=== PATIENT | female | born 1970 | race American Indian/Alaskan Native ===

== ENCOUNTER 2021-06-25 12:20 | Emergency (ER) | payer OTHER ==
[2021-06-25] MEDS ORDERED: ONDANSETRON 4 MG/2 ML INJ IV NR (12:30)
[2021-06-25] MEDS ORDERED: HYDROmorphone 1 MG/1 ML INJ IV ONE (12:30)
[2021-06-25] MEDS ORDERED: fentaNYL 100 MCG/2 ML INJ IV ONE ×3 (12:36→13:29)
--- NOTE | 2021-06-25 13:33 | XRay Report ---
LEFT HUMERUS 1 VIEW(S) INDICATION / CLINICAL INFORMATION: fall, deformity . Left arm pain. COMPARISON: None available. FINDINGS: BONES / JOINT(S): Posterior left elbow dislocation. No fracture of the left humerus. SOFT TISSUES: Mild soft tissue swelling around the left elbow. ADDITIONAL FINDINGS: None. Signer Name: Carrie Stevenson MD Signed: 06/25/2021 1:28 PM Workstation Name: [id number]
--- NOTE | 2021-06-25 13:35 | XRay Report ---
LEFT ELBOW 1 VIEW(S) LEFT FOREARM 1 VIEW INDICATION / CLINICAL INFORMATION: fall, deformity with left elbow and forearm pain. COMPARISON: None available. FINDINGS: Only single views of the left elbow and left forearm could be obtained due to patient pain. BONES / JOINT(S): Posterior dislocation of the left elbow with posterior displacement of the proximal radius and ulna with respect to the distal humerus. No definite fracture of the visualized distal hu merus or radius/ulna. SOFT TISSUES: No significant abnormality. ADDITIONAL FINDINGS: None. IMPRESSION: 1. Posterior elbow dislocation. Follow-up radiographic series after reduction is recommended. Signer Name: Carrie Stevenson MD Signed: 06/25/2021 1:30 PM Workstation Name: [id number]
[2021-06-25] MEDS ORDERED: KETAMINE 500 MG/5 ML VIAL MDV IV ONE (13:37)
[2021-06-25] MEDS ORDERED: propofoL 200 MG/20 ML VIAL IV ONE (13:37)
[2021-06-25] MEDS ORDERED: SODIUM CHLORIDE 0.9% 1000 ML 1,000 ML ONE (14:02)
--- NOTE | 2021-06-25 14:45 | XRay Report ---
LEFT ELBOW 1 VIEW(S) INDICATION / CLINICAL INFORMATION: post reduction COMPARISON: Radiographs from earlier in the day FINDINGS: BONES / JOINT(S): There is a small chip fracture along the anterior aspect of the radial head. There is interval reduction of the radial head with appropriate alignment in relation to the capitellum. No significant arthritis. There is a moderate joint effusion. SOFT TISSUES: No significant abnormality. ADDITIONAL FINDINGS: None. Signer Name: Christian Hdz DO Signed: 06/25/2021 2:41 PM Workstation Name: [id number]
[2021-06-25] MEDS ORDERED: NALOXONE 0.4 MG/1 ML INJ ONE (15:17)
--- NOTE | 2021-06-25 15:25 | Emergency Department Report ---
ED Upper Extremity Inj HPI - General Chief Complaint: Extremity Injury, Upper Stated Complaint: ARM FRACTURE Time Seen by Provider: 06/25/21 12:30 Source: patient Mode of arrival: Ambulatory Limitations: No Limitations - History of Present Illness Initial Comments: 50-year-old right-hand dominant female no significant past medical problems states she fell off of her exercise bike injuring her left elbow. Patient presents with obvious left elbow deformity and crying in pain. Pain is 10/10 in intensity. Patient is unable to move arm secondary to pain. No other injury reported. patient did not have anything to eat or drink today. History of tubal ligation without issues with anesthesia in the past - Related Data Previous Rx's Medication Instructions Recorded Last Taken Type HYDROcodone/APAP 5-325 [Mcbain 1 each PO Q6HR PRN #14 tablet 06/25/21 Unknown Rx 5/325] Ibuprofen [Motrin] 800 mg PO Q8HR PRN #20 tablet 06/25/21 Unknown Rx Allergies Allergy/AdvReac Type Severity Reaction Status Date / Time Penicillins Allergy Unknown Verified 06/25/21 12:36 ED Review of Systems ROS: Stated complaint: ARM FRACTURE Other details as noted in HPI Comment: All other systems reviewed and negative ED Past Medical Hx - Medications Home Medications: Home Medications Medication Instructions Recorded Confirmed Last Taken Type HYDROcodone/APAP 5-325 [Mcbain 1 each PO Q6HR PRN #14 tablet 06/25/21 Unknown Rx 5/325] Ibuprofen [Motrin] 800 mg PO Q8HR PRN #20 tablet 06/25/21 Unknown Rx ED Physical Exam - General Limitations: No Limitations - Other Other exam information: General: Crying, distress secondary Head: Atraumatic Eyes: normal appearance ENT: Moist mucous membranes Neck: Normal appearance, no midline tenderness Chest: Clear to auscultation bilaterally CV: Regular rate and rhythm Abdomen: Soft, normal bowel sounds, nontender, nondistended, no rebound or guarding Back: Normal inspection Extremity: Left elbow deformity with pain to distal humerus and proximal forearm, 2+ radial pulse Neuro: Alert O x 3, no facial asymmetry, speech clear, no gross motor sensory deficit Skin: No rash ED Course Vital Signs 06/25/21 06/25/21 06/25/21 12:34 12:59 13:41 Temperature 98.4 F Temperature [ Pre-Procedure] Pulse Rate 122 H 101 H Pulse Rate [ Intra-Procedure ] Pulse Rate [ Post-Procedure] Pulse Rate [Pre -Procedure] Respiratory 20 20 21 Rate Respiratory Rate [Intra- Procedure] Respiratory Rate [Post- Procedure] Respiratory Rate [Pre- Procedure] Blood Pressure Blood Pressure [Intra- Procedure] Blood Pressure [Post-Procedure ] Blood Pressure [Pre-Procedure] Blood Pressure 148/94 [Right] O2 Sat by Pulse 98 Oximetry O2 Sat by Pulse Oximetry [ Intra-Procedure ] O2 Sat by Pulse Oximetry [Post -Procedure] O2 Sat by Pulse Oximetry [Pre- Procedure] 06/25/21 06/25/21 06/25/21 13:46 14:00 14:30 Temperature Temperature [ 97.6 F Pre-Procedure] Pulse Rate 89 Pulse Rate [ 96 H Intra-Procedure ] Pulse Rate [ 85 Post-Procedure] Pulse Rate [Pre 96 H -Procedure] Respiratory 12 Rate Respiratory 16 Rate [Intra- Procedure] Respiratory 16 Rate [Post- Procedure] Respiratory 22 Rate [Pre- Procedure] Blood Pressure 169/106 Blood Pressure 176/109 [Intra- Procedure] Blood Pressure 190/112 [Post-Procedure ] Blood Pressure 162/108 [Pre-Procedure] Blood Pressure [Right] O2 Sat by Pulse 96 97 Oximetry O2 Sat by Pulse 96 Oximetry [ Intra-Procedure ] O2 Sat by Pulse 100 Oximetry [Post -Procedure] O2 Sat by Pulse 98 Oximetry [Pre- Procedure] 06/25/21 06/25/21 06/25/21 14:45 15:00 15:16 Temperature Temperature [ Pre-Procedure] Pulse Rate Pulse Rate [ Intra-Procedure ] Pulse Rate [ Post-Procedure] Pulse Rate [Pre -Procedure] Respiratory 17 11 L 14 Rate Respiratory Rate [Intra- Procedure] Respiratory Rate [Post- Procedure] Respiratory Rate [Pre- Procedure] Blood Pressure 168/98 170/99 170/99 Blood Pressure [Intra- Procedure] Blood Pressure [Post-Procedure ] Blood Pressure [Pre-Procedure] Blood Pressure [Right] O2 Sat by Pulse 96 99 100 Oximetry O2 Sat by Pulse Oximetry [ Intra-Procedure ] O2 Sat by Pulse Oximetry [Post -Procedure] O2 Sat by Pulse Oximetry [Pre- Procedure] 06/25/21 06/25/21 15:30 15:35 Temperature Temperature [ Pre-Procedure] Pulse Rate 81 Pulse Rate [ Intra-Procedure ] Pulse Rate [ Post-Procedure] Pulse Rate [Pre -Procedure] Respiratory Rate Respiratory Rate [Intra- Procedure] Respiratory Rate [Post- Procedure] Respiratory Rate [Pre- Procedure] Blood Pressure 170/99 Blood Pressure [Intra- Procedure] Blood Pressure [Post-Procedure ] Blood Pressure [Pre-Procedure] Blood Pressure 164/90 [Right] O2 Sat by Pulse Oximetry O2 Sat by Pulse Oximetry [ Intra-Procedure ] O2 Sat by Pulse Oximetry [Post -Procedure] O2 Sat by Pulse Oximetry [Pre- Procedure] - Moderate Sedation Indications: fracture/dislocation redu ASA Class: I Mallampati Airway Score: 2 Preparation: secured entrance monitor applied, pulse oximeter, capnometry used, supplemental O2 applied, reversal agents at bedside, suction/airway equipment at bedside, IV secured Dosage Used (#mgs): 82 Ketamine: IV IV Propofol Dose (mgs): 40 Complications: none Interventions: oxygen applied Patient Tolerated Procedure: well Additional Comments: Procedure start time 14:10 procedure start time 14:28 - Orthopedic Joint Reduction Joint #2 Consent Obtained: written consent Time Out Performed: Yes Side: left Joint Reduction Location: elbow Analgesia: moderate sedation Shoulder Technique Used (if applicable): traction/counter-traction Technique Used: traction/counter-traction Post-Reduction Neuro Exam: intact Post-Reduction Vascular Exam: intact Post Reduction X-Ray Obtained: Yes Post Reduction X-Ray Results: reduced Splint Applied: Yes (Posterior long arm) Patient Tolerated Procedure: well Additional Comments: Patient neurovascular intact with good strength to fingers and sensation distally, 2+ radial pulse ED Medical Decision Making - Radiology Data Radiology results: report reviewed LEFT ELBOW 1 VIEW(S) LEFT FOREARM 1 VIEW INDICATION / CLINICAL INFORMATION: fall, deformity with left elbow and forearm pain. COMPARISON: None available. FINDINGS: Only single views of the left elbow and left forearm could be obtained due to patient pain. BONES / JOINT(S): Posterior dislocation of the left elbow with posterior displacement of the proximal radius and ulna with respect to the distal humerus. No definite fracture of the visualized distal humerus or radius/ulna. SOFT TISSUES: No significant abnormality. ADDITIONAL FINDINGS: None. IMPRESSION: 1. Posterior elbow dislocation. Follow-up radiographic series after reduction is recommended. LEFT HUMERUS 1 VIEW(S) INDICATION / CLINICAL INFORMATION: fall, deformity . Left arm pain. COMPARISON: None available. FINDINGS: BONES / JOINT(S): Posterior left elbow dislocation. No fracture of the left humerus. SOFT TISSUES: Mild soft tissue swelling around the left elbow. ADDITIONAL FINDINGS: None. LEFT ELBOW 1 VIEW(S) INDICATION / CLINICAL INFORMATION: post reduction COMPARISON: Radiographs from earlier in the day FINDINGS: BONES / JOINT(S): There is a small chip fracture along the anterior aspect of the radial head. There is interval reduction of the radial head with appropriate alignment in relation to the capitellum. No significant arthritis. There is a moderate joint effusion. SOFT TISSUES: No significant abnormality. ADDITIONAL FINDINGS: None. - Medical Decision Making 50-year-old female presents to the hospital status post left elbow dislocation. Initial imaging prereduction films limited secondary to patient's pain and inability to tolerate additional views. After reduction a small chip fracture was noted to the radius with successful reduction of the elbow joint. Patient tolerated conscious sedation is alert and oriented at time of disposition with improved pain since reduction and splinting. Left arm posterior splint placed along with sling. Orthopedic follow-up will be advised. Patient is neurovascularly intact Critical Care Time: No Critical care attestation.: If time is entered above; I have spent that time in minutes in the direct care of this critically ill patient, excluding procedure time. ED Disposition Clinical Impression: Dislocation of left elbow, Radial head fracture Disposition: 01 HOME / SELF CARE / HOMELESS Is pt being admited?: No Condition: Stable Instructions: Radial Head Fracture, Moderate Conscious Sedation, Adult, Care After, Elbow Dislocation Additional Instructions: Take the medication as prescribed. Follow-up with your doctor or doctor/clinic provided. Return if symptoms worsen as indicated by your discharge instructions. Prescriptions: Ibuprofen [Motrin] 800 mg PO Q8HR PRN #20 tablet PRN Reason: Pain , Severe (7-10) HYDROcodone/APAP 5-325 [Mcbain 5/325] 1 each PO Q6HR PRN #14 tablet PRN Reason: Pain , Severe (7-10) Referrals: PRIMARY CARE, [Primary Care Provider] - 3-5 Days JOSEFA POPE MD [Staff Physician] - 3-5 Days Time of Disposition: 15:44
[2021-06-25] MEDS ORDERED: KETOROLAC 30 MG/1 ML INJ IV ONE (15:30)
[2021-06-25 15:36] VITALS: BP 164/90
== END 2021-06-25 16:10 | disposition home or self-care (01) ==
LOC: ED 12:20
DX: S53.105A Unspecified dislocation of left ulnohumeral joint, initial encounter (principal); Z88.0 Allergy status to penicillin; Z79.899 Other long term (current) drug therapy; W18.39XA Other fall on same level, initial encounter; Y93.89 Activity, other specified; Y92.89 Other specified places as the place of occurrence of the external cause; Y99.8 Other external cause status
CPT/HCPCS: 24600; 73060; 73070; 73090; 96374; 96376; 99284; J2704; J3010; J7030; J2310